=== PATIENT | female | born 1980 | race Two or more races ===

== ENCOUNTER → 2019-04-18 | Day surgery (SDC) | payer OTHER ==
[~2019-04-18] MED LIST: PERCOCET 5-3251 EACH PO
== END | disposition home or self-care (01) ==
LOC: ADM 04-12 14:45 → CIR.AMB 05:57
DX: D27.1 Benign neoplasm of left ovary (principal); D27.0 Benign neoplasm of right ovary

== ENCOUNTER 2020-04-30 05:57 | Day surgery (SDC) | payer OTHER ==
[2020-04-30] MEDS ORDERED: PERCOCET 5-3251 EACH PO (09:17)
== END 2020-04-30 12:00 | disposition home or self-care (01) ==
LOC: CIR.AMB 05:57 → ADM 15:00 → CIR.AMB 15:00
PROVIDERS: ATTEND Obstetrics & Gynecology Gynecology
DX: D27.1 Benign neoplasm of left ovary (principal); D27.0 Benign neoplasm of right ovary